=== PATIENT | female | born 1990 | race Caucasian/White ===

== ENCOUNTER 2017-10-21 16:19 | Inpatient (IN) ==
[2017-10-21] MEDS ORDERED: Sodium Chlor 0.9% Inj 500 ML IV.SIG PRN (18:54)
[2017-10-21] MEDS ORDERED: Oxytocin 30 Units/500ml Premix 30 UNITS/500 ML BAG IV.SIG ONE (18:54)
[2017-10-21] MEDS ORDERED: Naloxone Inj 0.4 MG/ML Vial IV.PUSH PRN (18:54)
[2017-10-21] MEDS ORDERED: Sod Chloride 0.9% Inj 1,000 ML IV.CONT PRN (18:54)
[2017-10-21] MEDS ORDERED: fentaNYL Citrate Inj 100 MCG/2 ML Ampul IV.PUSH PRN ×2 (18:54)
[2017-10-21] MEDS ORDERED: Citric Acid/Sodium Citrate Liq 30 ML UDC PO SCH (19:00)
[2017-10-21] MEDS ORDERED: fentaNYL 2MCG-Bupiv 0.125% Epi 150 ML EPIDURAL ONE (20:09)
[2017-10-21 21:12] LABS: Baso % (Auto) 0.2 % (0.0-2.0); Eos # (Auto) 0.2 th/mm3 (0.0-0.4); Eos % (Auto) 1.1 % (0.0-4.0); Hematocrit 37.5 % (35.0-46.0); Hemoglobin 12.6 gm/dL (11.6-15.3); Lymph # (Auto) 2.2 th/mm3 (1.0-4.8); Lymph % (Auto) 11.4 % (9.0-44.0); Mean Corpuscular HGB Conc 33.7 % (32.0-36.0); Mean Corpuscular Hemoglobin 27.5 pg (27.0-34.0); Mean Corpuscular Volume 81.6 fL (80.0-100.0); Mean Platelet Volume 8.9 fL (7.0-11.0); Mono # (Auto) 1.1 th/mm3 (0.0-0.9); Mono % (Auto) 5.7 % (0.0-8.0); Neut # (Auto) 15.6 th/mm3 (1.8-7.7); Neut % (Auto) 81.6 % (16.0-70.0); Platelet Count 275 th/mm3 (150-450); Red Cell Distribution Width 13.8 % (11.6-17.2); White Blood Count 19.1 th/mm3 (4.0-11.0)
[2017-10-21] MEDS ORDERED: fentaNYL 2MCG-Bupiv 0.125% Epi 150 ML EPIDURAL PRN (21:15)
[2017-10-21] MEDS ORDERED: fentaNYL Citrate Inj 100 MCG/2 ML Ampul EPIDURAL ONE (21:15)
[2017-10-21] MEDS ORDERED: Oxytocin 30 Units/500ml Premix 30 UNITS/500 ML BAG IV.SIG PRN (23:02)
--- NOTE | 2017-10-22 00:09 | ED ---
History of Present Illness Service: LATE ENTRY, PATIENT SEEN ON 10/21/17 @ 1800 Primary Care Physician: No Primary Care Physician Chief Complaint: labor History of Present Illness: 26 yo at 40 weeks, pt of Dr Mcghee, who came to the [facility] due to uterine contractions increasing in intensity. She denies ROM, reports good FM Weeks Gestation:: 40 Para: 0 : 1 - Inpatient Certification I certify that the inpatient services were ordered in accordance with Medicare regulations governing the order. This includes certification that hospital inpatient services are reasonable and necessary and in the case of services not specified as inpatient-only under 42 CFR 419.22(n), that they are appropriately provided as inpatient services in accordance to with the 2-midnight benchmark under 43 CFR 412.3(e) Estimated Total Length of Stay (Days): 2 Plans for Post Hospital Care: Home Review of Systems All other systems reviewed negative except as stated in HPI PMFSH - Medical / Surgical Hx Neg / Unobtainable Surgical History: No Previous Surgery Medications and Allergies Active Medications: Active Medications Citric Acid/Sodium Citrate (Sodium Citrate/Citric Acid Liq) 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 [facility] Stop: 10/25/17 18:59 Ephedrine Sulfate (Ephedrine/Ns Syringe) 10 mg IV.PUSH UNSCH PRN PRN Reason: SEE LABEL COMMENTS Stop: 10/22/17 21:15 Fentanyl Citrate (Fentanyl Inj) 50 mcg IV.PUSH Q1H PRN PRN Reason: Pain Scale 3 - 5 Fentanyl Citrate (Fentanyl Inj) 100 mcg IV.PUSH Q1H PRN PRN Reason: PAIN SCALE 6 TO 10 Lactated Ringer's (Lr 1000 Ml Inj) 1,000 mls @ 125 mls/hr IV.CONT .Q8H AMBER Last Admin: 10/21/17 20:52 Dose: 125 mls/hr Lactated Ringer's (Lr 1000 Ml Inj) 1,000 mls @ 3,000 mls/hr IV.SIG UNSCH PRN PRN Reason: compromise or epidural Last Admin: 10/21/17 20:53 Dose: 3,000 mls/hr Sodium Chloride (Ns Inj) 500 mls @ 1,000 mls/hr IV.SIG UNSCH PRN PRN Reason: SEE LABEL COMMENTS Sodium Chloride (Ns Inj) 1,000 mls @ 100 mls/hr IV.CONT .Q10H PRN PRN Reason: SEE LABEL COMMENTS Fentanyl/Bupivacaine/Sodium Chlor (Fentanyl 2 Mcg-Bupiv 0.125% Epi) 150 mls @ 10 mls/hr EPIDURAL PRN PRN PRN Reason: for Labor Pain Oxytocin (Pitocin 30 Units/Ns 500 Ml Premix) 30 units in 500 mls @ 1 mls/hr IV.SIG TITRATE PRN; Protocol PRN Reason: For induction of labor Lidocaine HCl (Xylocaine 1% Inj) 0.1 ml I-DERMAL PRN PRN PRN Reason: For IV start Stop: 10/24/17 18:53 Lidocaine HCl (Xylocaine 1% Inj) 10 ml INFILTRATN PRN PRN PRN Reason: For episiotomy repair Stop: 10/23/17 18:53 Mineral Oil (Muri-Lube Oil) 10 ml TOPICAL PRN PRN PRN Reason: PRN perineal massage Miscellaneous Information (Misc Information) 1 each OTHER UNSCH PRN PRN Reason: SEE LABEL COMMENTS Stop: 10/22/17 21:15 Miscellaneous Information (Misc Information) 1 each OTHER UNSCH PRN PRN Reason: SEE LABEL COMMENTS Stop: 10/22/17 21:15 Naloxone HCl (Narcan Inj) 0.1 mg IV.PUSH Q2M PRN PRN Reason: for opiate reversal Allergies Allergy/AdvReac Type Severity Reaction Status Date / Time Sulfa (Sulfonamide Allergy Severe Hives Verified 10/21/17 18:16 Antibiotics) Home Medications Medication Instructions Recorded Confirmed Type ULL12-oyci carb,[id number] 1 each PO DAILY 10/21/17 10/21/17 History [CitraNatal Assure] doxylamine-pyridoxine (vit B6) 20 mg PO HS 10/21/17 10/21/17 History [Diclegis] Exam Vital signs: Vital Signs 10/21/17 17:28 10/21/17 20:13 10/21/17 20:37 Temperature 97.9 F Pulse Rate 86 91 H Respiratory Rate 16 20 Blood Pressure 114/84 116/88 10/21/17 20:48 10/21/17 20:54 10/21/17 20:56 Temperature 98.4 F Pulse Rate 94 H 88 Respiratory Rate 20 Blood Pressure 111/84 106/73 10/21/17 21:06 10/21/17 21:30 10/21/17 22:00 Temperature Pulse Rate 94 H Respiratory Rate 18 18 Blood Pressure 106/69 113/79 10/21/17 22:15 10/21/17 22:30 10/21/17 22:45 Temperature Pulse Rate 101 H 101 H 84 Respiratory Rate Blood Pressure 98/72 L 97/72 L 100/75 10/21/17 22:52 10/21/17 23:00 10/21/17 23:15 Temperature Pulse Rate 86 77 Respiratory Rate 18 Blood Pressure 95/75 L 102/71 10/21/17 23:30 10/21/17 23:45 Temperature Pulse Rate 76 72 Respiratory Rate Blood Pressure 94/62 L Intake & Output 10/21/17 10/21/17 10/22/17 06:59 18:59 06:59 Weight 77.564 kg Narrative: Pelvic Exam: Cervix: Dilatation: - 3 Effacement: - 80 Station: - -2 Presentation: - [facility] Membranes: intact Uterine Contractions: Regular q2 FHT's: Category: 1 Baseline: 130 Reactive: + Variability: mod Decels: none - Routine Neurological Exam Present: alert, oriented X3 Results - Labs CBC & Chem 7: 10/21/17 20:00 Labs: Laboratory Results - last 24 hr 10/21/17 10/21/17 10/21/17 17:00 20:00 20:00 WBC 19.1 H RBC 4.60 Hgb 12.6 Hct 37.5 MCV 81.6 MCH 27.5 MCHC 33.7 RDW 13.8 Plt Count 275 MPV 8.9 Neut % (Auto) 81.6 H Lymph % (Auto) 11.4 Chester % (Auto) 5.7 Eos % (Auto) 1.1 Baso % (Auto) 0.2 Neut # (Auto) 15.6 H Lymph # (Auto) 2.2 Chester # (Auto) 1.1 H Eos # (Auto) 0.2 Baso # (Auto) 0.0 WBC Differential . Differential Comment Auto diff final Urine Opiates Screen Cancelled Ur Barbiturates Screen Cancelled Ur Amphetamines Screen Cancelled U Benzodiazepines Scrn Cancelled Urine Cocaine Screen Cancelled U Cannabinoids Screen Cancelled Blood Type O Positive Blood Type Recheck Required Group B Strep: Negative Assessment and Plan - Plan Discussed with attending. Will admit in early labor. Routine care. Discharge Plan - Physicians Team Primary Care Provider: Primary Care Nurys Marsh Attending Provider: Danae Gutierrez
--- NOTE | 2017-10-22 00:35 | P.HPOB ---
History of Present Illness Primary Care Physician: No Primary Care Physician Chief Complaint: labor History of Present Illness: 26 yo at 40 weeks, pt of Dr Mcghee, who came to the [facility] due to uterine contractions increasing in intensity. She denies ROM, reports good FM Weeks Gestation:: 40 Para: 0 : 1 - Inpatient Certification I certify that the inpatient services were ordered in accordance with Medicare regulations governing the order. This includes certification that hospital inpatient services are reasonable and necessary and in the case of services not specified as inpatient-only under 42 CFR 419.22(n), that they are appropriately provided as inpatient services in accordance to with the 2-midnight benchmark under 43 CFR 412.3(e) Estimated Total Length of Stay (Days): 2 Plans for Post Hospital Care: Home Review of Systems All other systems reviewed negative except as stated in HPI PMFSH - Medical / Surgical Hx Neg / Unobtainable Surgical History: No Previous Surgery Medications and Allergies Active Medications: Active Medications Citric Acid/Sodium Citrate (Sodium Citrate/Citric Acid Liq) 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 [facility] Stop: 10/25/17 18:59 Ephedrine Sulfate (Ephedrine/Ns Syringe) 10 mg IV.PUSH UNSCH PRN PRN Reason: SEE LABEL COMMENTS Stop: 10/22/17 21:15 Last Admin: 10/22/17 00:19 Dose: 10 mg Fentanyl Citrate (Fentanyl Inj) 50 mcg IV.PUSH Q1H PRN PRN Reason: Pain Scale 3 - 5 Fentanyl Citrate (Fentanyl Inj) 100 mcg IV.PUSH Q1H PRN PRN Reason: PAIN SCALE 6 TO 10 Lactated Ringer's (Lr 1000 Ml Inj) 1,000 mls @ 125 mls/hr IV.CONT .Q8H [facility] Last Admin: 10/22/17 00:19 Dose: 125 mls/hr Lactated Ringer's (Lr 1000 Ml Inj) 1,000 mls @ 3,000 mls/hr IV.SIG UNSCH PRN PRN Reason: compromise or epidural Last Admin: 10/21/17 20:53 Dose: 3,000 mls/hr Sodium Chloride (Ns Inj) 500 mls @ 1,000 mls/hr IV.SIG UNSCH PRN PRN Reason: SEE LABEL COMMENTS Sodium Chloride (Ns Inj) 1,000 mls @ 100 mls/hr IV.CONT .Q10H PRN PRN Reason: SEE LABEL COMMENTS Fentanyl/Bupivacaine/Sodium Chlor (Fentanyl 2 Mcg-Bupiv 0.125% Epi) 150 mls @ 10 mls/hr EPIDURAL PRN PRN PRN Reason: for Labor Pain Oxytocin (Pitocin 30 Units/Ns 500 Ml Premix) 30 units in 500 mls @ 1 mls/hr IV.SIG TITRATE PRN; Protocol PRN Reason: For induction of labor Lidocaine HCl (Xylocaine 1% Inj) 0.1 ml I-DERMAL PRN PRN PRN Reason: For IV start Stop: 10/24/17 18:53 Lidocaine HCl (Xylocaine 1% Inj) 10 ml INFILTRATN PRN PRN PRN Reason: For episiotomy repair Stop: 10/23/17 18:53 Mineral Oil (Muri-Lube Oil) 10 ml TOPICAL PRN PRN PRN Reason: PRN perineal massage Miscellaneous Information (Misc Information) 1 each OTHER UNSCH PRN PRN Reason: SEE LABEL COMMENTS Stop: 10/22/17 21:15 Miscellaneous Information (Misc Information) 1 each OTHER UNSCH PRN PRN Reason: SEE LABEL COMMENTS Stop: 10/22/17 21:15 Naloxone HCl (Narcan Inj) 0.1 mg IV.PUSH Q2M PRN PRN Reason: for opiate reversal Allergies Allergy/AdvReac Type Severity Reaction Status Date / Time Sulfa (Sulfonamide Allergy Severe Hives Verified 10/21/17 18:16 Antibiotics) Home Medications Medication Instructions Recorded Confirmed Type NFO19-ykho carb,[id number]-dha 1 each PO DAILY 10/21/17 10/21/17 History [CitraNatal Assure] doxylamine-pyridoxine (vit B6) 20 mg PO HS 10/21/17 10/21/17 History [Diclegis] Exam Vital signs: Vital Signs 10/21/17 17:28 10/21/17 20:13 10/21/17 20:37 Temperature 97.9 F Pulse Rate 86 91 H Respiratory Rate 16 20 Blood Pressure 114/84 116/88 10/21/17 20:48 10/21/17 20:54 10/21/17 20:56 Temperature 98.4 F Pulse Rate 94 H 88 Respiratory Rate 20 Blood Pressure 111/84 106/73 10/21/17 21:06 10/21/17 21:30 10/21/17 22:00 Temperature Pulse Rate 94 H Respiratory Rate 18 18 Blood Pressure 106/69 113/79 10/21/17 22:15 10/21/17 22:30 10/21/17 22:45 Temperature Pulse Rate 101 H 101 H 84 Respiratory Rate Blood Pressure 98/72 L 97/72 L 100/75 10/21/17 22:52 10/21/17 23:00 10/21/17 23:15 Temperature Pulse Rate 86 77 Respiratory Rate 18 Blood Pressure 95/75 L 102/71 10/21/17 23:30 10/21/17 23:45 10/22/17 00:10 Temperature Pulse Rate 76 72 Respiratory Rate Blood Pressure 94/62 L 89/57 L 10/22/17 00:18 10/22/17 00:24 10/22/17 00:26 Temperature Pulse Rate Respiratory Rate 16 Blood Pressure 77/47 L 82/52 L 96/60 L Intake & Output 10/21/17 10/21/17 10/22/17 06:59 18:59 06:59 Intake Total 1000 / 1000 Balance 1000 / 1000 Weight 77.564 kg Intake: IV 1000 / 1000 LR 1000 mL Inj 1,000 ML @ 125 1000 / 1000 mls/hr IV.CONT .Q8H [facility] Rx#: [id number] - Constitutional no acute distress - Routine HEENT Exam Head: Present: normocephalic, atraumatic ENT: Present: mucous membranes moist - Routine Respiratory Exam Absent: respiratory distress, wheezes - Routine Cardiovascular Exam Present: RRR, S1, S2. Absent: murmur - Routine Abdominal Exam Present: soft. Absent: tenderness - Routine Extremities Exam Absent: cyanosis, clubbing, edema - Routine Skin Exam Present: intact, dry - Routine Neurological Exam Present: alert, oriented X3 Results - Labs CBC & Chem 7: 10/21/17 20:00 Labs: Laboratory Results - last 24 hr 10/21/17 10/21/17 10/21/17 17:00 20:00 20:00 WBC 19.1 H RBC 4.60 Hgb 12.6 Hct 37.5 MCV 81.6 MCH 27.5 MCHC 33.7 RDW 13.8 Plt Count 275 MPV 8.9 Neut % (Auto) 81.6 H Lymph % (Auto) 11.4 Josephine % (Auto) 5.7 Eos % (Auto) 1.1 Baso % (Auto) 0.2 Neut # (Auto) 15.6 H Lymph # (Auto) 2.2 Josephine # (Auto) 1.1 H Eos # (Auto) 0.2 Baso # (Auto) 0.0 WBC Differential . Differential Comment Auto diff final Urine Opiates Screen Cancelled Ur Barbiturates Screen Cancelled Ur Amphetamines Screen Cancelled U Benzodiazepines Scrn Cancelled Urine Cocaine Screen Cancelled U Cannabinoids Screen Cancelled Blood Type O Positive Blood Type Recheck Required Group B Strep: Negative Caprini VTE Risk Assessment Caprini VTE Risk Assessment: No/Low Risk (score <= 1) VTE Pharmacological Exception Reason: Epidural catheter (planned) VTE Mechanical Exception: Patient refusal Caprini Risk Assessment Model: Point Value = 1 Point Value = 2 Point Value = 3 Point Value = 5 Age 41-60 Minor surgery BMI > 25 kg/m2 Swollen legs Varicose veins or History of unexplained or recurrent spontaneous Oral contraceptives or hormone replacement Sepsis (< 1 month) Serious lung disease, including pneumonia (< 1 month) Abnormal pulmonary function Acute myocardial infarction Congestive heart failure (< 1 month) History of inflammatory bowel disease Medical patient at bed rest Age 61-74 Arthroscopic surgery Major open surgery (> 45 min) Laparoscopic surgery (> 45 min) Malignancy Confined to bed (> 72 hours) Immobilizing plaster cast Central venous access Age >= 75 History of VTE Family history of VTE Factor V Leiden Prothrombin [id number] Lupus anticoagulant Anticardiolipin antibodies Elevated serum homocysteine Heparin-induced thrombocytopenia Other congenital or acquired thrombophilia Stroke (< 1 month) Elective arthroplasty Hip, pelvis, or leg fracture Acute spinal cord injury (< 1 month) Prophylaxis Regimen: Total Risk Factor Score Risk Level Prophylaxis Regimen 0-1 Low Early ambulation 2 Moderate Order ONE of the following: *Sequential Compression Device (SCD) *Heparin 5000 units SQ BID 3-4 Higher Order ONE of the following medications: *Heparin 5000 units SQ TID *Enoxaparin/Lovenox 40 mg SQ daily (WT < 150 kg, CrCl > 30 mL/min) *Enoxaparin/Lovenox 30 mg SQ daily (WT < 150 kg, CrCl > 10-29 mL/min) *Enoxaparin/Lovenox 30 mg SQ BID (WT < 150 kg, CrCl > 30 mL/min) AND/OR *Sequential Compression Device (SCD) 5 or more Highest Order ONE of the following medications: *Heparin 5000 units SQ TID (Preferred with Epidurals) *Enoxaparin/Lovenox 40 mg SQ daily (WT < 150 kg, CrCl > 30 mL/min) *Enoxaparin/Lovenox 30 mg SQ daily (WT < 150 kg, CrCl > 10-29 mL/min) *Enoxaparin/Lovenox 30 mg SQ BID (WT < 150 kg, CrCl > 30 mL/min) AND *Sequential Compression Device (SCD) Assessment and Plan - Plan Discussed with attending. Will admit in early labor. Routine care.
[2017-10-22 06:32] LABS: Bacteria,Urine Rare /hpf; Bilirubin,Urine Negative (Negative); Clarity,Urine Hazy (Clear); Color,Urine Yellow (Yellw/Straw); Glucose,Urine (UA) Negative (Negative); Leukocyte Esterase,Urine Small (Negative); Mucus,Urine Moderate /lpf (Occasional); Nitrite,Urine Negative (Negative); Specific Gravity,Urine 1.011 (1.002-1.035); Squamous Epithelial Cell,Urine 3 /hpf (0-5)
[2017-10-22 06:41] LABS: Amphetamine Urine With Conf Neg (Neg); Benzodiazepine Urine With Conf Neg (Neg)
[2017-10-22] MEDS ORDERED: Simethicone 80 MG Chew Tablet PO PRN (11:18)
[2017-10-22] MEDS ORDERED: Senna/Docusate Sodium 8.6/50 MG Tablet PO PRN (11:18)
[2017-10-22] MEDS ORDERED: Oxytocin 30 Units/500ml Premix 30 UNITS/500 ML BAG IV.SIG ONE (11:18)
--- NOTE | 2017-10-22 11:23 | P.OBDELI ---
Procedure Note Performed by: Keegan Carr MD Procedure: Primary Low Transverse Section Indication for Delivery: malposition (arrest of descent) Informed Consent Obtained: For anesthesia, For procedure Confirmed Correct: Patient, Procedure, Site, Time-out taken Anesthesia: Epidural Medication Prior to Procedure: As documented in eMAR Monitoring During Procedure: Blood pressure monitoring, quality assurance monitor chassis, doppler, Pulse oximetry Urinary Catheter: Inserted using sterile technique, To dependent drainage Sterile Preparation: Duraprep, In usual fashion Position: Supine with wedge to right side, Supine with safety belt applied - Operative Features Skin Incision: Pfannenstiel Uterine Incision: Low transverse w/knife / scissors Membranes Ruptured: Previously Presentation: Occiput anterior Status of : Viable, Cord blood, Nursery present Placenta Delivered: Intact Estimated blood loss (mL): 650 Procedure Tolerated: Well Maternal Condition: Stable Baby Condition: Stable - Infant Infant: Female Weight: 3305 kg score (1 min): 8 score (5 min): 9
[2017-10-22] MEDS ORDERED: Lidocaine 2%/Epinephrine 1:200,000 PF Inj 20 ML Vial INFILTRATN ONE (12:00)
[2017-10-22] MEDS ORDERED: Ketorolac Inj 30 MG/ML (IVP) Vial IV.PUSH ONE (12:00)
[2017-10-22] MEDS ORDERED: Oxytocin 30 Units/500ml Premix 30 UNITS/500 ML BAG ONE (12:17)
--- NOTE | 2017-10-22 12:17 | MP ---
cc: Keegan Carr MD DATE OF OPERATION: 10/22/2017 PREOPERATIVE DIAGNOSES: Term intrauterine with arrest of descent, nonreassuring heart rate tracing, meconium fluid. POSTOPERATIVE DIAGNOSES: Term intrauterine with arrest of descent, nonreassuring heart rate tracing, meconium fluid. PROCEDURE PERFORMED: Primary low-transverse section delivery of viable female . SURGEON: Keegan Carr MD. ANESTHESIA: Reinforced epidural. ESTIMATED BLOOD LOSS: 650 mL. FINDINGS: A female infant, right occiput transverse. A nuchal cord x1 with a cord around the body as well. Lightly-stained amniotic fluid with meconium. Apgars were 8 at 1 minute and 9 at five. Intact placenta, 3-vessel cord. INDICATIONS FOR PROCEDURE: The patient progressed to 9 cm despite adequate uterine contractions remaining at 9 cm and -2 station, and heart rate tracing had intermittent episodes category 2 elements that were concerning, given the arrest of descent. section was decided upon and the patient agreed. The patient received Ancef 2 grams prophylactically. Reinforcement of the epidural was as per anesthesia. PROCEDURE DESCRIPTION: The patient was taken to the operating room in stable condition. Underwent reinforcement of her epidural. She was prepped and draped. Macias had been previously inserted by sterile technique. She had sequentials placed on lower extremities for DVT prophylaxis. Timeout was conducted, agreed by all present in the room. Excellent pain control was noted throughout. Pfannenstiel incision was used, taking it through the skin down through the subcutaneous layer with a 10 blade down to the fascia, which was identified and then scored in the midline and extended laterally by sharp dissection, dissecting the rectus muscle away from the fascia allowing identification of the midline of the rectus muscle, and then entering the peritoneum sharply without complication. The incision was extended. Bladder blade was placed over the pubic symphysis and a transverse incision was made in the lower uterine segment with slightly stained amniotic fluid for meconium. The infant vertex was then delivered through the incision. Nuchal cord identified was reduced. The infant was then delivered in total. Cord entanglement was noted around the 's upper thorax. The infant had good tone and cry. Delayed cord clamping was documented for 45 seconds. was then taken to the [place] with the nursery staff present with good tone and cry. The cord sample was obtained. Placenta was removed intact. No retained tissue. Uterus was thea with the use of Pitocin. The uterus was closed using a running locking suture of 0 Monocryl, followed by a second imbricating suture of 2-0 Monocryl with good result. Pelvis was irrigated. No active bleeding, no hematoma, good repair was noted. The full count was made correct. Peritoneum was then closed using a running 2-0 Monocryl. The muscle bellies were reapproximated with interrupted mattress suture of 2-0 Monocryl loosely and then the fascia was closed with 0 Vicryl in a simple running fashion with good result. Subcutaneous layer was irrigated. Any active bleeding was cauterized and the space was reapproximated with a running 2-0 Monocryl. A #1 Stratafix was then used to close the skin in a bidirectional fashion with good results. Steri-Strips were applied to the incision along with a Primapore dressing. At the end of the case, final count was correct. The patient was stable and the was doing well. Keegan Carr MD SJBert/joseline , 11:28 AM , 11:38 AM
[2017-10-22] MEDS ORDERED: Naloxone Inj 0.4 MG/ML Vial IV.PUSH PRN (13:46)
[2017-10-22] MEDS ORDERED: Oxytocin 30 Units/500ml Premix 30 UNITS/500 ML BAG IV.SIG PRN (16:18)
[2017-10-22] MEDS: ceFAZolin Inj 2,000 MG in Sodium Chlor 0.9% Inj 80 ML IV.SIG SCH (18:09)
--- NOTE | 2017-10-22 19:55 | P.OBGPN ---
. Queried PDMP, no patient identified
[2017-10-23] MEDS: ceFAZolin Inj 2,000 MG in Sodium Chlor 0.9% Inj 80 ML IV.SIG SCH (03:21)
[2017-10-23 05:56] LABS: Baso % (Auto) 0.3 % (0.0-2.0); Eos # (Auto) 0.1 th/mm3 (0.0-0.4); Eos % (Auto) 0.7 % (0.0-4.0); Hematocrit 30.7 % (35.0-46.0); Hemoglobin 10.3 gm/dL (11.6-15.3); Lymph # (Auto) 2.8 th/mm3 (1.0-4.8); Mean Corpuscular HGB Conc 33.7 % (32.0-36.0); Mean Corpuscular Hemoglobin 27.7 pg (27.0-34.0); Mean Corpuscular Volume 82.2 fL (80.0-100.0); Mean Platelet Volume 8.6 fL (7.0-11.0); Mono # (Auto) 1.1 th/mm3 (0.0-0.9); Mono % (Auto) 5.4 % (0.0-8.0); Neut # (Auto) 15.8 th/mm3 (1.8-7.7); Neut % (Auto) 79.6 % (16.0-70.0); Platelet Count 249 th/mm3 (150-450); Red Blood Count 3.73 mil/mm3 (4.00-5.30); Red Cell Distribution Width 14.1 % (11.6-17.2); White Blood Count 19.9 th/mm3 (4.0-11.0)
[2017-10-23] MEDS: Ibuprofen 600 MG Tablet PO PRN ×2 (06:22→15:32)
--- NOTE | 2017-10-23 10:20 | P.PNOB ---
Subjective Post op day: 1 Interval history: Patient doing well, pain controlled, ambulating, voiding, tolerating regular diet, vaginal bleeding less than menses. Objective Vital Signs/I&O: Vital Signs 10/22/17 11:30 10/22/17 11:40 10/22/17 11:55 Temperature 97.5 F L Pulse Rate 87 81 75 Respiratory Rate 18 18 18 Blood Pressure 95/57 L 104/59 L 91/53 L 10/22/17 12:10 10/22/17 12:25 10/22/17 13:17 Temperature 97.6 F Pulse Rate 72 18 L 67 Respiratory Rate 18 16 16 Blood Pressure 93/53 L 96/60 L 97/62 L 10/22/17 16:00 10/22/17 20:00 10/23/17 00:00 Temperature 97.9 F 98.1 F 98.3 F Pulse Rate 81 65 81 Respiratory Rate 16 18 18 Blood Pressure 112/69 109/61 90/56 L 10/23/17 04:00 10/23/17 08:00 Temperature 98.5 F 97.9 F Pulse Rate 65 80 Respiratory Rate 18 16 Blood Pressure 87/55 L 89/61 L Intake & Output 10/22/17 10/23/17 10/23/17 18:59 06:59 18:59 Intake Total 100 / 100 Balance 100 / 100 Intake: IV 100 / 100 Ancef Inj 2,000 MG In NS Inj 80 100 / 100 ML @ 200 mls/hr IV.SIG Q8H [facility] Rx#:[id number] Result Diagrams: 10/23/17 05:14 Objective Remarks: GENERAL: Well-nourished, well-developed patient. CARDIOVASCULAR: Regular rate and rhythm without murmurs, gallops, or rubs. RESPIRATORY: Breath sounds equal bilaterally. No accessory muscle use. ABDOMEN/GI: Abdomen soft, non-tender, bowel sounds present. Did not visualize bandage, patient was breast-feeding . Fundus: Firm, non-tender at umbilicus. GENITOURINARY: Light to moderate bleeding. EXTREMITIES: No cyanosis or edema, non-tender, without signs of DVT. Medications and IVs: Active Medications Citric Acid/Sodium Citrate (Sodium Citrate/Citric Acid Liq) 30 ml PO [employer]IAL SERVICES [facility] Stop: 10/25/17 18:59 Last Admin: 08/15/18 10:09 Dose: 30 ml Diphenhydramine HCl (Benadryl) 50 mg PO Q6H PRN PRN Reason: MILD TO MODERATE ITCHING Stop: 10/23/17 13:45 Diphenhydramine HCl (Benadryl Inj) 25 mg IV.PUSH Q6H PRN PRN Reason: MILD TO MODERATE ITCHING Stop: 10/23/17 13:45 Diphtheria/Pertussis/Tetanus Vacc (Boostrix Vaccine Inj) 0.5 ml IM .ONCE ONE Stop: 10/23/17 16:01 Lactated Ringer's (Lr 1000 Ml Inj) 1,000 mls @ 100 mls/hr IV.CONT .Q10H [facility] Stop: 10/23/17 12:17 Last Admin: 10/23/17 06:29 Dose: Not Given Oxytocin (Pitocin 30 Units/Ns 500 Ml Premix) 30 units in 500 mls @ 100 mls/hr IV.SIG PRN PRN PRN Reason: Heavy bleeding Stop: 10/23/17 16:17 Ibuprofen (Motrin) 600 mg PO Q6HR PRN PRN Reason: cramping Last Admin: 10/23/17 06:22 Dose: 600 mg Ketorolac Tromethamine (Toradol Inj) 30 mg IM Q6H PRN PRN Reason: SEE LABEL COMMENTS Stop: 10/27/17 11:17 Last Admin: 10/23/17 00:47 Dose: 30 mg Lidocaine HCl (Xylocaine 1% Inj) 0.1 ml I-DERMAL PRN PRN PRN Reason: For IV start Stop: 10/24/17 18:53 Lidocaine HCl (Xylocaine 1% Inj) 10 ml INFILTRATN PRN PRN PRN Reason: For episiotomy repair Stop: 10/23/17 18:53 Measles/Mumps/Rubella Vaccine Live (M-M-R Ii Vaccine Inj) 0.5 ml SQ .ONCE ONE Stop: 10/23/17 16:01 Mineral Oil (Muri-Lube Oil) 10 ml TOPICAL PRN PRN PRN Reason: PRN perineal massage Miscellaneous Information ([facility] [place] Nursing Information) 1 each OTHER UNSCH PRN PRN Reason: SEE LABEL COMMENTS Stop: 10/23/17 13:45 Miscellaneous Information ([facility] [place] [facility] Nursing Information) 1 each OTHER UNSCH PRN PRN Reason: SEE LABEL COMMENTS Stop: 10/23/17 13:45 Naloxone HCl (Narcan Inj) 0.1 mg IV.PUSH Q2M PRN PRN Reason: for opiate reversal Naloxone HCl (Narcan Inj) 0.4 mg IV.PUSH UNSCH PRN PRN Reason: SEE LABEL COMMENTS Stop: 10/23/17 13:45 Oxycodone/Acetaminophen (Percocet 5/325 Mg) 1 tab PO Q4H PRN PRN Reason: PAIN SCALE 3 TO 5 Last Admin: 10/23/17 06:21 Dose: 1 tab Oxycodone/Acetaminophen (Percocet 5/325 Mg) 2 tab PO Q4H PRN PRN Reason: PAIN SCALE 6 TO 10 Senna/Docusate Sodium (Ashley-Colace) 2 tab PO Q12H PRN PRN Reason: CONSTIPATION Simethicone (Mylicon Chew) 80 mg PO QID PRN PRN Reason: FLATULENCE Sodium Chloride (Ns Flush) 2 ml IV.FLUSH BID AMBER Last Admin: 10/23/17 00:46 Dose: Not Given Sodium Chloride (Ns Flush) 2 ml IV.FLUSH PRN PRN PRN Reason: FLUSH AFTER USING IV ACCESS Assessment and Plan - Plan 26-year-old 001 status post primary low transverse at 40 weeks and 5 days for arrest of descent and nonreassuring heart tones.. 1. Postoperative day/ day #1: Afebrile, vital signs stable, a.m. hemoglobin appreciated and appropriate. Continue routine and postoperative care. Discussed post operative precautions, expectations and follow-up. -Female . -Skin closed with strata fix per op report. -Urine culture collected at time of admission, result pending. Will need this followed up.
[2017-10-23] MEDS ORDERED: Diphtheria/Tetanus/Pertussis Vaccine Inj 0.5 ML Syringe IM ONE (16:00)
[2017-10-23] MEDS ORDERED: Measles/Mumps/Rubella Vaccine Inj 0.5 ML Vial SQ ONE (16:00)
[2017-10-24] MEDS: Ibuprofen 600 MG Tablet PO PRN ×2 (00:01→07:37)
[2017-10-24 07:55] VITALS: BP 100/71; PULSE 77; RESP 20; TEMP 97.9
--- NOTE | 2017-10-24 08:22 | P.PNOB ---
Subjective Post op day: 2 Interval history: doing well, pain well controlled, rafaela po, + flatus, min lochia Objective Vital Signs/I&O: Vital Signs 10/23/17 20:00 10/24/17 07:54 Temperature 98.1 F 97.9 F Pulse Rate 85 77 Respiratory Rate 16 20 Blood Pressure 106/71 100/71 Result Diagrams: 10/23/17 05:14 Objective Remarks: GENERAL: Well-nourished, well-developed patient. CARDIOVASCULAR: Regular rate and rhythm without murmurs, gallops, or rubs. RESPIRATORY: Breath sounds equal bilaterally. No accessory muscle use. ABDOMEN/GI: Abdomen soft, non-tender, bowel sounds present. Incision: Clean, dry and intact. Fundus: Firm, non-tender at umbilicus. GENITOURINARY: Light to moderate bleeding. EXTREMITIES: No cyanosis or edema, non-tender, without signs of DVT. Medications and IVs: Active Medications Citric Acid/Sodium Citrate (Sodium Citrate/Citric Acid Liq) 30 ml PO [employer] Stop: 10/25/17 18:59 Last Admin: 10/22/17 10:09 Dose: 30 ml Ibuprofen (Motrin) 600 mg PO Q6HR PRN PRN Reason: cramping Last Admin: 10/24/17 07:37 Dose: 600 mg Ketorolac Tromethamine (Toradol Inj) 30 mg IM Q6H PRN PRN Reason: SEE LABEL COMMENTS Stop: 10/27/17 11:17 Last Admin: 10/23/17 00:47 Dose: 30 mg Lidocaine HCl (Xylocaine 1% Inj) 0.1 ml I-DERMAL PRN PRN PRN Reason: For IV start Stop: 10/24/17 18:53 Mineral Oil (Muri-Lube Oil) 10 ml TOPICAL PRN PRN PRN Reason: PRN perineal massage Naloxone HCl (Narcan Inj) 0.1 mg IV.PUSH Q2M PRN PRN Reason: for opiate reversal Oxycodone/Acetaminophen (Percocet 5/325 Mg) 1 tab PO Q4H PRN PRN Reason: PAIN SCALE 3 TO 5 Last Admin: 10/23/17 19:48 Dose: 1 tab Oxycodone/Acetaminophen (Percocet 5/325 Mg) 2 tab PO Q4H PRN PRN Reason: PAIN SCALE 6 TO 10 Last Admin: 10/24/17 07:37 Dose: 2 tab Senna/Docusate Sodium (Ashley-Colace) 2 tab PO Q12H PRN PRN Reason: CONSTIPATION Last Admin: 10/24/17 00:00 Dose: 2 tab Simethicone (Mylicon Chew) 80 mg PO QID PRN PRN Reason: FLATULENCE Sodium Chloride (Ns Flush) 2 ml IV.FLUSH BID AMBER Last Admin: 10/24/17 07:22 Dose: Not Given Sodium Chloride (Ns Flush) 2 ml IV.FLUSH PRN PRN PRN Reason: FLUSH AFTER USING IV ACCESS Assessment and Plan - Plan 26-year-old 001 status post primary low transverse at 40 weeks and 5 days for arrest of descent and nonreassuring heart tones.. 1. Postoperative day/ day #2: Afebrile, vital signs stable, a.m. hemoglobin appreciated and appropriate. Continue routine and postoperative care. Discussed post operative precautions, expectations and follow-up. -Female . -Skin closed with strata fix per op report. -Urine culture collected at time of admission, result pending. Will need this followed up. desires to be d/c home today.
== END 2017-10-24 11:51 | disposition home or self-care (01) ==
LOC: HOBED 16:19 → H2E 19:03 → H1EA 10-22 12:41
PROVIDERS: ADMIT Obstetrics & Gynecology; ATTEND Obstetrics & Gynecology